=== PATIENT | female | born 2000 | race Caucasian/White ===

== ENCOUNTER 2018-05-11 13:58 | Emergency (ER) | payer OTHER, SELFPAY | END 2018-05-11 14:45 | disposition home or self-care (01) | LOC: NAV ERS 13:58 | DX: S90.562A Insect bite (nonvenomous), left ankle, initial encounter (principal); L08.9 Local infection of the skin and subcutaneous tissue, unspecified; F17.210 Nicotine dependence, cigarettes, uncomplicated | CPT/HCPCS: 99406 ==